=== PATIENT | male | born 1955 | race African-American/Black ===

== ENCOUNTER 2018-10-30 07:13 | Day surgery (SDC) | payer OTHER ==
[2018-10-30] MEDS: CYCLOPENTOLATE 1% OPTH 2 ML ONE ×3 (07:49→08:12)
[2018-10-30] MEDS: PHENYLEPHRINE 10% OPTH 5ML ONE ×3 (07:49→08:12)
[2018-10-30] MEDS ORDERED: BUPIVACAINE 0.25% PF 10 ML VIAL ONE (07:58)
[2018-10-30] MEDS ORDERED: NA CHLORIDE 0.9% 500 ML ONE (07:58)
[2018-10-30] MEDS ORDERED: LIDOCAINE HCL/PF 3.5% OPTH GEL ONE (07:58)
[2018-10-30] MEDS ORDERED: LIDOCAINE 2% MPF 5 ML VIAL ONE (07:58)
[2018-10-30] MEDS ORDERED: BALANCED SALT IRRIG PLAIN 500 ML BTL IRR ONE (08:24)
[2018-10-30] MEDS ORDERED: NS 0.9% VIAL 10 ML ONE (08:24)
[2018-10-30] MEDS ORDERED: EPINEPHRINE/PF 1 MG/ML AMP ONE ×2 (08:24→09:19)
[2018-10-30] MEDS ORDERED: LIDOCAINE 1% MPF 2 ML AMPULE ONE (08:25)
[2018-10-30] MEDS ORDERED: DUOVISC 1 KIT OPTH ONE (08:25)
[2018-10-30] MEDS ORDERED: MOXIFLOXACIN HCL 10 DROPS/ML **OR USE OPTH ONE (08:25)
[2018-10-30] MEDS ORDERED: BSS OPTHALMIC SOL 15 ML BOT OPTH ONE (09:05)
[2018-10-30] MEDS ORDERED: MIDAZOLAM HCL 2 MG/2 ML INJ ONE ×2 (09:09→09:52)
[2018-10-30] MEDS: TETRACAINE HCL 0.5% 4ML OPTH ONE ×2 (09:23→09:32)
--- NOTE | 2018-10-30 10:14 | P.BOP ---
Preoperative diagnosis: Nuclear sclerotic, cortical and PSC cataract and regular astigmatism OS Postoperative diagnosis: Same Primary procedure: Phacoemulsification with Toric IOL OS Estimated blood loss: None Anesthesia: Local (Subtenon's infusion with anesthesia for cataract surgery) Complications: None Implants: SN6AT3 +17.5 @ 116 Transferred to: Other (Day surgery) Condition: Good
--- NOTE | 2018-10-30 21:22 | OP ---
Date of Procedure: 10/30/2018 Surgeon: Anayeli Sheets MD Anesthesiologist: Anibal Young CRNA and Marc Mclean MD Preoperative Diagnosis: Nuclear sclerotic and cortical posterior subcapsular cataracts and regular astigmatism, left eye. Operation Performed: Phacoemulsification with toric intraocular lens, left eye. Anesthesia: Per cataract surgery. Complications: None. Description Of Procedure: In the operating room the patient was prepped and draped in the usual sterile fashion for ophthalmic surgery. A lid speculum was placed in the OS. Two paracentesis sites were made superiorly and inferiorly in the limbal cornea. Viscoat was placed in the anterior chamber and a crescent blade was used to make a corneal groove and tunnel, and a keratome was used to enter the anterior chamber. Provisc was placed in the anterior chamber and a 360 degree capsulotomy was performed with a cystitome. The lens was hydrodissected with BSS and rotated freely. The lens was removed with a stop and chop technique. 2.14 phaco CDE was used to remove the lens. Residual cortex was removed with the irrigation and aspiration. Provisc was placed in the capsular bag. A SN6AT3 +17.5 at 116 degrees lens was placed in the capsular bag without complications. Irrigation and aspiration was used to remove residual viscoelastic. The paracentesis sites were hydrated with BSS. The wound and paracentesis sites were inspected and found to be watertight. Vigamox 0.07 cc was placed intracamerally at the end of the procedure. The eye was irrigated with balanced salt solution. The eye was patched with a soft cotton patch and [place] metal shield. The patient was returned to day surgery in good condition. Comments: The patient was initially planned for topical anesthesia and Akten was placed in the eye in Day Surgery and irrigated out of the eye in the OR. However, the patient could not look at the microscope light even on low, and a subtenon's infusion was given at that time. A conjunctival incision was made in the inferior nasal quadrant with Taye scissors. A sub-Tenon block consisting of a 1:1 mixture of 2% Xylocaine and 0.25% bupivacaine was placed through the conjunctival incision with a blunt cannula. The eye was massaged for approximately 4 minutes before initiating surgery Discharge Instructions: Mr. South is discharged to home in good condition. He is to follow up at Dr. Sheets's office this afternoon and then in the morning. MARCIN/CRISS Voice ID: [id number] Report ID: [id number] MTDD
== END 2018-10-30 10:40 | disposition home or self-care (01) ==
LOC: OR 07:13
PROVIDERS: ATTEND Ophthalmology Retina Specialist
PROC: 08RK3JZ Replacement of Left Lens with Synthetic Substitute, Percutaneous Approach (ICD-10-PCS; principal; 2018-10-30 09:05)
DX: H25.12 Age-related nuclear cataract, left eye (principal); H25.012 Cortical age-related cataract, left eye; H52.222 Regular astigmatism, left eye; I10 Essential (primary) hypertension; Z79.899 Other long term (current) drug therapy
CPT/HCPCS: J0171; J2001; J2250; V2630; V2787